=== PATIENT | female | born 1950 | race Caucasian/White ===

== ENCOUNTER 2018-12-24 08:41 | Day surgery (SDC) | payer OTHER ==
[2018-12-24] MEDS ORDERED: PROPOFOL 20 ML (11:06)
== END 2018-12-24 12:15 | disposition home or self-care (01) ==
LOC: GIL 08:41
DX: Z12.11 Encounter for screening for malignant neoplasm of colon (principal); K64.4 Residual hemorrhoidal skin tags
CPT/HCPCS: 45378